=== PATIENT | male | born 2005 | race Caucasian/White ===

== ENCOUNTER 2024-03-15 23:52 | Emergency (ER) | payer OTHER ==
[~2024-03-15] VITALS: Ht 182.9 cm; Wt 88.5 kg
[~2024-03-15 23:52] MED LIST: AMOX50SU PO
== END 2024-03-16 00:54 | disposition home or self-care (01) ==
LOC: ER 23:52
DX: K08.89 Other specified disorders of teeth and supporting structures (principal)
CPT/HCPCS: 99282